=== PATIENT | male | born 1985 | race Caucasian/White ===

== ENCOUNTER 2023-03-05 21:07 | Emergency (ER) | payer SELFPAY ==
[~2023-03-05] VITALS: Ht 185.4 cm; Wt 81.6 kg
[2023-03-05 21:10] VITALS: BP 124/87; PULSE 100; RESP 18; TEMP 97.8; O2SAT 97
[2023-03-05] MEDS ORDERED: NACL 0.9% 1,000 ML IV ONE (21:15)
== END 2023-03-05 21:35 | disposition left against medical advice (07) ==
LOC: MED 21:07
DX: F10.129 Alcohol abuse with intoxication, unspecified (principal); R11.10 Vomiting, unspecified
CPT/HCPCS: 99281